=== PATIENT | female | born 1990 | race Caucasian/White ===

== ENCOUNTER 2017-04-24 10:59 | Emergency (ER) | payer OTHER ==
[2017-04-24] MEDS ORDERED: diPHENhydraMINE IV* 50 MG/ML 1 ml VIAL (BENADRYL) IV ONE (11:29)
[2017-04-24] MEDS ORDERED: Metoclopramide IV* 5 MG/ML 2 ML VIAL IV ONE (11:29)
[2017-04-24] MEDS ORDERED: Ketorolac INJ* 30 MG/ML 1 ML VIAL IV ONE (11:29)
[2017-04-24 11:47] LABS: Hematocrit 39 % (35-47); Hemoglobin 13.1 g/dl (12.0-16.0); Mean Corpuscular HGB Conc 34 g/dl (31-36); Mean Corpuscular Hemoglobin 31 pg (27-31); Mean Corpuscular Volume 90 fL (80-97); Mean Platelet Volume 7 um3 (7.4-10.4); Red Blood Count 4.26 10^6/ul (4.0-5.4); Red Cell Distribution Width 13 % (10.5-15); White Blood Count 7.8 10^3/ul (3.5-10.8)
[2017-04-24 12:04] LABS: Albumin 4.1 g/dL (3.2-5.2); BUN/Creatinine Ratio 8.6 (8-20); Calcium 8.6 mg/dL (8.6-10.3); EGFR African American 107.5 (>60); EGFR Non-African American 83.6 (>60); Globulin 3.4 g/dL (2-4); Potassium 3.5 mmol/L (3.5-5.0); Total Bilirubin 0.3 mg/dL (0.2-1.0); Total Protein 7.5 g/dL (6.4-8.9)
[2017-04-24 12:11] LABS: Urine Bilirubin Negative (Negative); Urine Glucose Negative (Negative); Urine Nitrite Negative (Negative)
[2017-04-24 12:36] LABS: Erythrocyte Sed Rate 23 mm/Hr (0-14)
[2017-04-24 13:23] VITALS: BP 137/84
--- NOTE | 2017-04-25 08:33 | ED ---
Jorge Alberto Anaya Angela, scribed for Roque Alvarez MD on 04/24/17 at 1132 . Hypertension - HPI Summary HPI Summary: This pt is a 27 y/o female presenting to [facility] c/o hypertension x3 weeks and headache x2 weeks. Pt reports her headaches are constant and sees light with both eyes. She describes her headaches as a throbbing pain and it radiates to her neck when it's at its worse. Pt notes photophobia and that noise aggravates her headache. She states she has intermittent palpitations (characterized as heart racing) and feels SOB associated. Pt reports she was seen at [facility] and was given Imitrex for her headache (which was day 10 of her headache). Pt denies chest pain, dizziness, numbness, weakness. She is currently on paroxetine for anxiety. Pt has seasonal allergies and currently takes Benadryl and Singulair everyday. LMP: once every 3 months (normal due to taking control). No PMHx of HTN or migraines. - History of Current Complaint Chief Complaint: EDGeneral Stated Complaint: MIGRAINE/2 WEEKS, HIGH BP Time Seen by Provider: 04/24/17 11:18 Hx Obtained From: Patient Onset/Duration: Started Weeks Ago Timing: Lasting Weeks Aggravating Factor(s): Other: - Headache aggravated by light and loud noise. Alleviating Factor(s): Nothing Associated Signs & Symptoms: Headaches, SOB - intermittent with palpitations, Other: - palpitations - Allergies/Home Medications Allergies/Adverse Reactions: Allergies Allergy/AdvReac Type Severity Reaction Status Date / Time Sumatriptan [From Imitrex] Allergy Anxiety Verified 04/24/17 11:17 Home Medications: Home Medications PARoxetine HCL TAB* [Paxil TAB*] 10 mg PO DAILY 04/24/17 [History Confirmed ] Singulair 5 mg TAB* 5 mg PO DAILY 04/24/17 [History Confirmed 04/24/17] PMH/Surg Hx/FS Hx/Imm Hx Endocrine/Hematology History: Denies: Hx Diabetes Cardiovascular History: Denies: Hx Hypertension Psychiatric History: Reports: Hx Anxiety Infectious Disease History: No Infectious Disease History: Denies: Traveled Outside the [place] in Last 30 Days - Family History Known Family History: Positive: Cardiac Disease - maternal great grandfather - Social History Alcohol Use: None Substance Use Type: Reports: None Smoking Status (MU): Never Smoked Tobacco Review of Systems Positive: Other - hypertension. Negative: Fever, Chills Positive: Photophobia Positive: Other - loud noise aggravates headache Positive: Palpitations - intermittent. Negative: Chest Pain Positive: Shortness Of Breath - intermittent with palpitations Gastrointestinal: Negative Genitourinary: Negative Positive: Headache All Other Systems Reviewed And Are Negative: Yes Physical Exam - Summary Physical Exam Summary: VITAL SIGNS: Reviewed. GENERAL: Patient is a well-developed and nourished female who is lying comfortable in the stretcher. Patient is not in any acute respiratory distress. HEAD AND FACE: No signs of trauma. No ecchymosis, hematomas or skull depressions. No sinus tenderness. EYES: PERRLA, EOMI x 2, No injected conjunctiva, no nystagmus. EARS: Hearing grossly intact. Ear canals and tympanic membranes are within normal limits. MOUTH: Oropharynx within normal limits. NECK: Supple, trachea is midline, no adenopathy, no JVD, no carotid bruit, no c- spine tenderness, neck with full ROM. CHEST: Symmetric, no tenderness at palpation LUNGS: Clear to auscultation bilaterally. No wheezing or crackles. CVS: Regular rate and rhythm, S1 and S2 present, no murmurs or gallops appreciated. ABDOMEN: Soft, non-tender. No signs of distention. No rebound no guarding, and no masses palpated. Bowel sounds are normal. EXTREMITIES: FROM in all major joints, no edema, no cyanosis or clubbing. NEURO: Alert and oriented x 3. No acute neurological deficits. Speech is normal and follows commands. SKIN: Dry and warm Triage Information Reviewed: Yes Vital Signs On Initial Exam: Initial Vitals Temp Pulse Resp BP Pulse Ox 99.4 F 92 20 178/105 98 04/24/17 11:11 04/24/17 11:11 04/24/17 11:11 04/24/17 11:11 04/24/17 11:11 Vital Signs Reviewed: Yes Diagnostics - Vital Signs Vital Signs Temp Pulse Resp BP Pulse Ox 04/24/17 11:11 99.4 F 92 20 178/105 98 - Laboratory Lab Results: Lab Results 04/24/17 04/24/17 04/24/17 Range/Units 11:35 11:35 11:42 WBC 7.8 (3.5-10.8) 10^3/ul RBC 4.26 (4.0-5.4) 10^6/ul Hgb 13.1 (12.0-16.0) g/dl Hct 39 (35-47) % MCV 90 (80-97) fL MCH 31 (27-31) pg MCHC 34 (31-36) g/dl RDW 13 (10.5-15) % Plt Count 380 (150-450) 10^3/ul MPV 7 L (7.4-10.4) um3 Neut % (Auto) 64.4 (38-83) % Lymph % (Auto) 25.5 (25-47) % [place] % (Auto) 6.2 (1-9) % Eos % (Auto) 3.2 (0-6) % Baso % (Auto) 0.7 (0-2) % Absolute Neuts (auto) 5.0 (1.5-7.7) 10^3/ul Absolute Lymphs (auto) 2.0 (1.0-4.8) 10^3/ul Absolute Monos (auto) 0.5 (0-0.8) 10^3/ul Absolute Eos (auto) 0.2 (0-0.6) 10^3/ul Absolute Basos (auto) 0.1 (0-0.2) 10^3/ul Absolute Nucleated RBC 0.01 10^3/ul Nucleated RBC % 0.1 ESR 23 H (0-14) mm/Hr Carbon Monoxide Screen (<4.0) % Sodium 135 (133-145) mmol/L Potassium 3.5 (3.5-5.0) mmol/L Chloride 101 (101-111) mmol/L Carbon Dioxide 28 (22-32) mmol/L Anion Gap 6 (2-11) mmol/L BUN 7 (6-24) mg/dL Creatinine 0.81 (0.51-0.95) mg/dL Est GFR ( Amer) 107.5 (>60) Est GFR (Non-Af Amer) 83.6 (>60) BUN/Creatinine Ratio 8.6 (8-20) Glucose 89 (70-100) mg/dL Calcium 8.6 (8.6-10.3) mg/dL Total Bilirubin 0.30 (0.2-1.0) mg/dL AST 16 (13-39) U/L ALT 11 (7-52) U/L Alkaline Phosphatase 57 (34-104) U/L Total Protein 7.5 (6.4-8.9) g/dL Albumin 4.1 (3.2-5.2) g/dL Globulin 3.4 (2-4) g/dL Albumin/Globulin Ratio 1.2 (1-3) Urine Color Straw Urine Appearance Clear Urine pH 7.0 (5-9) Ur Specific [place] 1.006 L (1.010-1.030) Urine Protein Negative (Negative) Urine Ketones Negative (Negative) Urine Blood Negative (Negative) Urine Nitrate Negative (Negative) Urine Bilirubin Negative (Negative) Urine Urobilinogen Negative (Negative) Ur Leukocyte Esterase Negative (Negative) Urine Glucose Negative (Negative) 04/24/17 Range/Units 12:03 WBC (3.5-10.8) 10^3/ul RBC (4.0-5.4) 10^6/ul Hgb (12.0-16.0) g/dl Hct (35-47) % MCV (80-97) fL MCH (27-31) pg MCHC (31-36) g/dl RDW (10.5-15) % Plt Count (150-450) 10^3/ul MPV (7.4-10.4) um3 Neut % (Auto) (38-83) % Lymph % (Auto) (25-47) % [place] % (Auto) (1-9) % Eos % (Auto) (0-6) % Baso % (Auto) (0-2) % Absolute Neuts (auto) (1.5-7.7) 10^3/ul Absolute Lymphs (auto) (1.0-4.8) 10^3/ul Absolute Monos (auto) (0-0.8) 10^3/ul Absolute Eos (auto) (0-0.6) 10^3/ul Absolute Basos (auto) (0-0.2) 10^3/ul Absolute Nucleated RBC 10^3/ul Nucleated RBC % ESR (0-14) mm/Hr Carbon Monoxide Screen < 4 (<4.0) % Sodium (133-145) mmol/L Potassium (3.5-5.0) mmol/L Chloride (101-111) mmol/L Carbon Dioxide (22-32) mmol/L Anion Gap (2-11) mmol/L BUN (6-24) mg/dL Creatinine (0.51-0.95) mg/dL Est GFR ( Amer) (>60) Est GFR (Non-Af Amer) (>60) BUN/Creatinine Ratio (8-20) Glucose (70-100) mg/dL Calcium (8.6-10.3) mg/dL Total Bilirubin (0.2-1.0) mg/dL AST (13-39) U/L ALT (7-52) U/L Alkaline Phosphatase (34-104) U/L Total Protein (6.4-8.9) g/dL Albumin (3.2-5.2) g/dL Globulin (2-4) g/dL Albumin/Globulin Ratio (1-3) Urine Color Urine Appearance Urine pH (5-9) Ur Specific [place] (1.010-1.030) Urine Protein (Negative) Urine Ketones (Negative) Urine Blood (Negative) Urine Nitrate (Negative) Urine Bilirubin (Negative) Urine Urobilinogen (Negative) Ur Leukocyte Esterase (Negative) Urine Glucose (Negative) Result Diagrams: 04/24/17 11:35 04/24/17 11:35 Lab Statement: Any lab studies that have been ordered have been reviewed, and results considered in the medical decision making process. - EKG 1156 Cardiac Rate: Tachycardia - 102 bpm EKG Rhythm: Sinus Rhythm EKG Interpretation: No ST elevation Re-Evaluation - Re-Evaluation Second Eval Re-Evaluation Time: 13:00 Comment: Blood pressure is 150/89. Pt is feeling much better. Hypertension Course/Dx - Course Assessment/Plan: This pt is a 27 y/o female presenting to [facility] c/o hypertension x3 weeks and headache x2 weeks. Pt reports her headaches are constant and sees light with both eyes. She describes her headaches as a throbbing pain and it radiates to her neck when it's at its worse. Pt notes photophobia and that noise aggravates her headache. She states she has intermittent palpitations (characterized as heart racing) and feels SOB associated. Pt reports she was seen at [facility] and was given Imitrex for her headache (which was day 10 of her headache). Pt denies chest pain, dizziness, numbness, weakness. She is currently on paroxetine for anxiety. Pt has seasonal allergies and currently takes Benadryl and Singulair everyday. LMP : once every 3 months (normal due to taking control). No PMHx of HTN or migraines. Test result without any significant abnormalities. UA is negative for UTI. In the ED course, the pt was given IV fluids, Benadryl, Toradol, and Reglan for a migraine headache. After these medications, her blood pressure significantly improved (150/89). Therefore, Im not 100% sure if the pt has a migraine headache had that makes her hypertensive, or chronic hypertension that gives her headache. At this point, her headache has resolved. Therefore, I asked the pt to follow up with her PCP for further assessment of her headache and HTN. The pt understands and agrees. Pt is hemodynamically stable, alert and oriented x3. - Diagnoses Differential Diagnosis/HQI PQRI: Hypertension, Hypertensive Crisis, Hypertensive Urgency, Migraine Headache Provider Diagnoses: Increased blood pressure, Headache Discharge - Discharge Plan Condition: Stable Disposition: HOME Patient Education Materials: Acute Headache (ED), Hypertension (ED) Forms: *Work Release Referrals: [facility] PHYSICIAN REFERRAL [Outside] Additional Instructions: Please follow up with your primary care provider in 2-3 days. The documentation as recorded by the Jorge Alberto todd Angela accurately reflects the service I personally performed and the decisions made by me, Roque Alvarez MD.
== END 2017-04-24 13:25 | disposition home or self-care (01) ==
LOC: ED 10:59
DX: R51 Headache (principal); I10 Essential (primary) hypertension; R00.2 Palpitations; R06.02 Shortness of breath; F41.9 Anxiety disorder, unspecified; Z88.8 Allergy status to other drugs, medicaments and biological substances
CPT/HCPCS: 36415; 80053; 81003; 82375; 85025; 85652; 93005; 96374; 96375; 99283; J1200; J1885; J2765

== ENCOUNTER 2017-04-28 17:08 | Emergency (ER) | payer OTHER ==
[2017-04-28] MEDS ORDERED: Ondansetron INJ* 2 MG/ML VIAL IV ONE (17:50)
[2017-04-28] MEDS ORDERED: NS 0.9% 1000 ML* 1,000 ML IV ONE ×2 (17:50→20:08)
[2017-04-28] MEDS ORDERED: LORazepam INJ* 2 MG/ML 1 ML VIAL IV PUSH ONE (17:50)
[2017-04-28] MEDS ORDERED: HYDROmorphone INJ* 1 MG/ML CARPUJECT SYRINGE IV SLOW PU ONE (17:50)
[2017-04-28] MEDS ORDERED: HYDROmorphone INJ* 2 MG/ML CARPUJECT SYRINGE IV SLOW PU ONE (17:55)
[2017-04-28 18:13] LABS: Hematocrit 38 % (35-47); Hemoglobin 12.8 g/dl (12.0-16.0); Mean Corpuscular HGB Conc 34 g/dl (31-36); Mean Corpuscular Hemoglobin 31 pg (27-31); Mean Corpuscular Volume 92 fL (80-97); Mean Platelet Volume 7 um3 (7.4-10.4); Red Cell Distribution Width 14 % (10.5-15); White Blood Count 7.4 10^3/ul (3.5-10.8)
[2017-04-28] MEDS ORDERED: Lidocaine 1% INJ* 10 MG/ML 30 ML SDV ONE (18:24)
[2017-04-28] MEDS ORDERED: Lidocaine 1% MDV 20 ML INJ ONE (18:26)
[2017-04-28 18:28] LABS: Albumin 4.1 g/dL (3.2-5.2); BUN/Creatinine Ratio 11.1 (8-20); EGFR African American 107.5 (>60); EGFR Non-African American 83.6 (>60); Globulin 3.3 g/dL (2-4); Potassium 3.3 mmol/L (3.5-5.0); Total Bilirubin 0.3 mg/dL (0.2-1.0); Total Protein 7.4 g/dL (6.4-8.9)
--- NOTE | 2017-04-28 18:42 | RAD ---
Indication: Severe headache. Hypertension. Fever. Comparison: No relevant prior exams available on the [facility] PACS for comparison. Technique: Noncontrast CT vertex of skull through foramen magnum. Report: The sulci, ventricles, and basal cisterns are normal for age. Manning matter white matter differentiation is preserved without evidence for edema. No intra or extra axial hemorrhage, mass, or fluid collection detected. Unremarkable visualized orbital contents. Unremarkable calvarium and skull base. Unremarkable scalp. The visualized paranasal sinuses and mastoid air spaces are clear. IMPRESSION: Negative unenhanced head CT.
[2017-04-28 18:50] LABS: Urine Bacteria Absent (Absent); Urine Bilirubin Negative (Negative); Urine Glucose Negative (Negative); Urine Nitrite Negative (Negative)
[2017-04-28 18:56] LABS: Erythrocyte Sed Rate 20 mm/Hr (0-14)
[2017-04-28] MEDS ORDERED: Iohexol 350* (CONTRAST) 500 ML MDV IV ONE (19:50)
--- NOTE | 2017-04-28 21:09 | RAD ---
INDICATION: Headache, hypertension, fever. COMPARISON: Noncontrast head CT of the same date. TECHNIQUE: Multidetector CT images were obtained from the aortic arch to the vertex of the head with 80 mL Omnipaque 350 IV contrast. Arterial phase of enhancement. Multiplanar reformation including maximum intensity projection. 3-D arterial volume rendering. Stenosis estimations based on denominator of distal arterial diameter. NECK ANGIOGRAM REPORT: Variant common origin of the RIGHT brachiocephalic and LEFT common carotid arteries from the aortic arch. Negative for ostial stenosis. Unremarkable bilateral common and internal carotid arteries. Negative for occlusion, stenosis, dissection, or aneurysm. LEFT dominant vertebral artery with both vertebral arteries patent and contributing to the basilar artery. Patent bilateral internal jugular veins. NECK ANGIOGRAM IMPRESSION: Normal CT angiogram of the carotid and vertebral arteries. HEAD ANGIOGRAM REPORT: Patent unremarkable intracranial internal carotid arteries as well as the M1 and M2 segments of the middle cerebral arteries and A1 and A2 anterior cerebral artery segments. Patent anterior communicating artery. Unremarkable basilar artery and cerebellar artery origins. Patent posterior cerebral arteries are supplied primarily by the posterior circulation with normal variant hypoplastic posterior communicating arteries. No intracranial aneurysm or vascular malformation evident. No arterial phase enhancing lesions evident. HEAD ANGIOGRAM IMPRESSION: Normal CT angiogram of the central intracranial arterial vasculature. CPT II: CPT II Codes: 3100F
--- NOTE | 2017-04-28 21:30 | ED ---
Nino Anaya Abhishek, scribed for Katia Moncada MD on 04/28/17 at 1744 . Headache - HPI Summary HPI Summary: This patient is a 27 year old F presenting to [facility] accompanied by female with a chief complaint of VIGIL since 3 weeks ago at 0800. The CC is described as intermittent The patient rates the pain 7/10 in severity. Symptoms aggravated by nothing. Symptoms alleviated by nothing. Patient reports intermittent visual changes, low grade fevers, weakness, and high blood pressure, frequent urination. Patient denies weakness bilaterally, and naval congestion. PMHx includes HTN, Syncope from migraines. - History Of Current Complaint Chief Complaint: EDHeadache Stated Complaint: HEADACHE 3 WKS/THROBBING/EAR PRESSURE/FEVER Time Seen by Provider: 04/28/17 17:27 Hx Obtained From: Patient Onset/Duration: Started weeks ago - 3 weeks ago (0800), Still Present Initially Headache Was: "Worst Headache Ever" Currently Pain Is: Current Pain Scale(0-10)= - 7 Timing: Intermittent, Lasting: Character: Migraine Aggravating Factor: Nothing Allevating Factors: Nothing Associated Signs And Symptoms: Fever - low grade, Visual Changes, Other (Noted In Comments) - frequent urination - Allergies/Home Medications Allergies/Adverse Reactions: Allergies Allergy/AdvReac Type Severity Reaction Status Date / Time Sumatriptan [From Imitrex] Allergy Anxiety Verified 04/28/17 17:24 PMH/Surg Hx/FS Hx/Imm Hx Endocrine/Hematology History: Denies: Hx Diabetes Cardiovascular History: Reports: Hx Hypertension Psychiatric History: Reports: Hx Anxiety Infectious Disease History: No Infectious Disease History: Denies: Traveled Outside the [place] in Last 30 Days - Family History Known Family History: Positive: Cardiac Disease - maternal great grandfather, Other - Migraines, chronic back pain Negative: Diabetes - Social History Occupation: Employed Full-time Lives: With Family - 4 children Alcohol Use: None Substance Use Type: Reports: None Smoking Status (MU): Never Smoked Tobacco Review of Systems Positive: Fever - low grade Eyes: Negative ENT: Negative Positive: Other - high blood pressure Respiratory: Negative Gastrointestinal: Negative Positive: frequency - urination Musculoskeletal: Negative Skin: Negative Neurological: Other - visual changes (intermittent) Positive: Headache - intermittent and throbbing. Negative: Weakness Psychological: Normal All Other Systems Reviewed And Are Negative: Yes Physical Exam - Summary Physical Exam Summary: General: Well appearing, no pain distress Skin: Warm, Skin Color Reflects Adequate Perfusion, Dry Eyes: EOMI, KOKI ENT: Pharynx normal, TMs normal Neck: Supple, nontender Respiratory: CTA, breath sounds present, no rhonchi, no wheezes, no rales Cardiovascular: RRR, no murmur, no rub, no gallop Abdomen: Soft, nontender, Non-distended, no guarding, no rebound Bowel: Present Musculoskeletal: TROY, tenderness over her forehead not over her temporal artery , Neuro: Sensory/motor intact, A&Ox3, CN intact 2-12, No meningitis, Neuro exam is normal Psych: Affect/mood appropriate Triage Information Reviewed: Yes Vital Signs On Initial Exam: Initial Vitals Temp Pulse Resp BP Pulse Ox 98.6 F 88 16 176/106 100 04/28/17 17:18 04/28/17 17:18 04/28/17 17:18 04/28/17 17:18 04/28/17 17:18 Vital Signs Reviewed: Yes Diagnostics - Vital Signs Vital Signs Temp Pulse Resp BP Pulse Ox 04/28/17 17:18 98.6 F 88 16 176/106 100 - Laboratory Lab Results: Lab Results 04/28/17 04/28/17 04/28/17 Range/Units 18:00 18:00 18:36 WBC 7.4 (3.5-10.8) 10^3/ul RBC 4.10 (4.0-5.4) 10^6/ul Hgb 12.8 (12.0-16.0) g/dl Hct 38 (35-47) % MCV 92 (80-97) fL MCH 31 (27-31) pg MCHC 34 (31-36) g/dl RDW 14 (10.5-15) % Plt Count 381 (150-450) 10^3/ul MPV 7 L (7.4-10.4) um3 Neut % (Auto) 56.7 (38-83) % Lymph % (Auto) 33.0 (25-47) % [place] % (Auto) 6.0 (1-9) % Eos % (Auto) 3.6 (0-6) % Baso % (Auto) 0.7 (0-2) % Absolute Neuts (auto) 4.2 (1.5-7.7) 10^3/ul Absolute Lymphs (auto) 2.5 (1.0-4.8) 10^3/ul Absolute Monos (auto) 0.4 (0-0.8) 10^3/ul Absolute Eos (auto) 0.3 (0-0.6) 10^3/ul Absolute Basos (auto) 0.1 (0-0.2) 10^3/ul Absolute Nucleated RBC 0 10^3/ul Nucleated RBC % 0 ESR 20 H (0-14) mm/Hr Sodium 136 (133-145) mmol/L Potassium 3.3 L (3.5-5.0) mmol/L Chloride 103 (101-111) mmol/L Carbon Dioxide 28 (22-32) mmol/L Anion Gap 5 (2-11) mmol/L BUN 9 (6-24) mg/dL Creatinine 0.81 (0.51-0.95) mg/dL Est GFR ( Amer) 107.5 (>60) Est GFR (Non-Af Amer) 83.6 (>60) BUN/Creatinine Ratio 11.1 (8-20) Glucose 157 H (70-100) mg/dL Calcium 9.0 (8.6-10.3) mg/dL Total Bilirubin 0.30 (0.2-1.0) mg/dL AST 16 (13-39) U/L ALT 13 (7-52) U/L Alkaline Phosphatase 53 (34-104) U/L Total Protein 7.4 (6.4-8.9) g/dL Albumin 4.1 (3.2-5.2) g/dL Globulin 3.3 (2-4) g/dL Albumin/Globulin Ratio 1.2 (1-3) Urine Color Yellow Urine Appearance Clear Urine pH 6.0 (5-9) Ur Specific [place] 1.012 (1.010-1.030) Urine Protein Negative (Negative) Urine Ketones Negative (Negative) Urine Blood 1+ H (Negative) Urine Nitrate Negative (Negative) Urine Bilirubin Negative (Negative) Urine Urobilinogen Negative (Negative) Ur Leukocyte Esterase 2+ H (Negative) Urine WBC (Auto) Trace(0-5/hpf) (Absent) Urine RBC (Auto) 1+(3-5/hpf) H (Absent) Ur Squamous Epith Cells Present H (Absent) Urine Bacteria Absent (Absent) Urine Glucose Negative (Negative) Result Diagrams: 04/28/17 18:00 04/28/17 18:00 Lab Statement: Any lab studies that have been ordered have been reviewed, and results considered in the medical decision making process. - CT Brain CT CT Interpretation Completed By: Radiologist - Brain CT reveals Negative unenhanced head CT. ED physician has reviewed this radiology report and agrees. Head CTA CT Interpretation Completed By: Radiologist - Head CTA reveals Normal CT angiogram of the central intracranial arterial vasculature. ED physician has reviewed this radiology report and agrees. - EKG 1808 EKG Interpretation: Normal EKG Headache Course/Dx - Course Course Of Treatment: 27 yo female with headache x 2weeks that is intermittent. There is a strong family history of migraine. She has been seen 2x in the past for the headache. today labs were essentially neg. she does not have temporal artery tenderness but in tender over her left mandaen (again not over the artery) , and her esr is 20 (not 50 which would be significant for mandaen arteritis). A ct and cta of her brain and neck were neg. An LP was attempted but pt became near syncopal from the procedure and so it was eventually aborted. Of course, meningitis is in the differential but she is afebrile and it is low on the differential and if she had a sentinal bleed we do not see any anuerysms to support that. She is very well appearing and appears only mildly uncomfortable. she is already seeing her pmd about htn and this vigil, of note her bp normalized with pain meds and one must wonder which is causing which in terms of the vigil and the htn, she has of note been started on an antihypertensive by her pmd. - Diagnoses Provider Diagnoses: Headache Discharge - Discharge Plan Condition: Stable Disposition: HOME The documentation as recorded by the Nino todd Abhishek accurately reflects the service I personally performed and the decisions made by me, Katia Moncada MD.
[2017-04-28 21:50] VITALS: BP 141/98
[2017-05-01 17:00] LABS: B garinii/B afzelii PCR Negative (Negative); B mayonii PCR Negative (Negative)
== END 2017-04-28 21:54 | disposition home or self-care (01) ==
LOC: ED 17:08
DX: R51 Headache (principal); R50.9 Fever, unspecified
CPT/HCPCS: 36415; 70450; 70496; 70498; 80053; 81003; 81015; 85025; 85652; 86618; 87086; 87476; 87798; 93005; 99282; J1170; J2001; J2060; J2405; Q9967

== ENCOUNTER 2017-07-12 19:14 | Emergency (ER) | payer OTHER ==
[2017-07-12 20:08] VITALS: BP 103/58
--- NOTE | 2017-07-12 20:15 | ED ---
Nino Anaya Abhishek, scribed for Todd Flowers MD on 07/12/17 at 2009 . Complex/Multi-Sys Presentation - HPI Summary HPI Summary: This patient is a 27 year old F [facility] accompanied by male with a c /o of hypotension since today. The patient was reportedly receiving an evaluation for a hypertension a few days ago at her PCP. The pt was then prescribed Lopressor (50 mg) and was told to take the medication once a day. She has been taking the medication for a few days and reports she was "unable to do anything" today, fatigue, and VIGIL. Pt checked her blood pressure earlier today and it was reported to be 92/55. - History Of Current Complaint Chief Complaint: EDGeneral Time Seen by Provider: 07/12/17 19:37 Hx Obtained From: Patient Onset/Duration: Gradual Onset, Lasting Hours - Since today morning, Resolved - VIGIL Timing: Constant Severity Currently: None Aggravating Factor(s): nothing Alleviating Factor(s): nothing Associated Signs And Symptoms: Positive: Other - Fatigue and VIGIL - Allergies/Home Medications Allergies/Adverse Reactions: Allergies Allergy/AdvReac Type Severity Reaction Status Date / Time Sumatriptan [From Imitrex] Allergy Anxiety Verified 04/28/17 17:24 PMH/Surg Hx/FS Hx/Imm Hx Endocrine/Hematology History: Denies: Hx Diabetes Cardiovascular History: Reports: Hx Hypertension Psychiatric History: Reports: Hx Anxiety Infectious Disease History: No Infectious Disease History: Denies: Traveled Outside the [place] in Last 30 Days - Family History Known Family History: Positive: Cardiac Disease - maternal great grandfather, Other - Migraines, chronic back pain Negative: Diabetes - Social History Lives: With Family Alcohol Use: Occasionally Substance Use Type: Reports: None Smoking Status (MU): Never Smoked Tobacco Review of Systems Positive: Fatigue Eyes: Negative ENT: Negative Cardiovascular: Other - hypotensive Respiratory: Negative Gastrointestinal: Negative Genitourinary: Negative Musculoskeletal: Negative Skin: Negative Positive: Headache - currently resolved Psychological: Normal All Other Systems Reviewed And Are Negative: Yes Physical Exam - Summary Physical Exam Summary: VITAL SIGNS: Reviewed. GENERAL: ~Patient is a well-developed and nourished (FEMALE) who is lying comfortable in the stretcher. Patient is not in any acute respiratory distress. HEAD AND FACE: No signs of trauma. No ecchymosis, hematomas or skull depressions. No sinus tenderness. EYES: PERRLA, EOMI x 2, No injected conjunctiva, no nystagmus. EARS: Hearing grossly intact. Ear canals and tympanic membranes are within normal limits. MOUTH: Oropharynx within normal limits. NECK: Supple, trachea is midline, no adenopathy, no JVD, no carotid bruit, no c- spine tenderness, neck with full ROM. CHEST: Symmetric, no tenderness at palpation LUNGS: Clear to auscultation bilaterally. No wheezing or crackles. CVS: Regular rate and rhythm, S1 and S2 present, no murmurs or gallops appreciated. ABDOMEN: Soft, non-tender. No signs of distention. No rebound no guarding, and no masses palpated. Bowel sounds are normal. EXTREMITIES: FROM in all major joints, no edema, no cyanosis or clubbing. NEURO: Alert and oriented x 3. No acute neurological deficits. Speech is normal and follows commands. SKIN: Dry and warm Triage Information Reviewed: Yes Vital Signs On Initial Exam: Initial Vitals Temp Pulse Resp BP Pulse Ox 98 F 80 18 135/88 100 07/12/17 19:17 07/12/17 19:17 07/12/17 19:17 07/12/17 19:17 07/12/17 19:17 Vital Signs Reviewed: Yes - Garber Coma Scale Coma Scale Total: 15 Diagnostics - Vital Signs Vital Signs Temp Pulse Resp BP Pulse Ox 07/12/17 19:17 98 F 80 18 135/88 100 - Laboratory Lab Statement: Any lab studies that have been ordered have been reviewed, and results considered in the medical decision making process. Complex Multi-Symp Course/Dx Course Of Treatment: We spent time discussing the patient's medication Lopressor (50 mg) and recommended talking to her PCP about potentially lowering the medication dosage or discussing changing her medication. The patient will be discharged home. The Dx will be headache and fatigue. - Diagnoses Provider Diagnoses: Headache, Fatigue Discharge - Discharge Plan Condition: Stable Disposition: HOME Patient Education Materials: Acute Headache (ED), Fatigue (ED) Referrals: Guillermo GREENBERG,Jos Mustafa [Primary Care Provider] - (Follow up with PCP within 2 to 3 days.) Additional Instructions: RETURN TO THE EMERGENCY DEPARTMENT FOR CHANGING OR WORSENING SYMPTOMS. The documentation as recorded by the scribe, Nino,Simon accurately reflects the service I personally performed and the decisions made by me, Todd Flowers MD.
== END 2017-07-12 20:08 | disposition home or self-care (01) ==
LOC: ED 19:14
DX: R51 Headache (principal); R53.83 Other fatigue; I10 Essential (primary) hypertension; Z88.8 Allergy status to other drugs, medicaments and biological substances
CPT/HCPCS: 99282

== ENCOUNTER 2018-01-01 08:47 | Day surgery (SDC) | payer OTHER ==
[~2018-01-01 08:47] MED LIST: Buffered Lidocaine 0.9% SYRIN* 5 ML/SYR SYRINGE INTRADERM ONE; Dexamethasone TAB* 4 MG PO ONE; DiMENhydriNATE IV* 50 MG/ML VIAL IV PUSH PRN; Famotidine IV* 10 MG/ML 2 ML (20 mg) IV ONE; Morphine INJ* 2 MG/ML 1 ML CARPUJECT IV PRN; Naloxone* 0.4 MG/ML 1 ML VIAL IV PRN; Ondansetron INJ* 2 MG/ML VIAL ONE; PROCHLORPERAZINE INJ 5 MG/ML 2 ML VIAL IV PRN; Scopolamine 1.5 mg* PATCH TRANSDERM PRN; oxyCODONE/Acetamin 5/325 MG* TAB PO PRN
[2018-01-01] MEDS ORDERED: Buffered Lidocaine 0.9% SYRIN* 5 ML/SYR SYRINGE ONE (08:53)
[2018-01-01] MEDS ORDERED: Famotidine IV* 10 MG/ML 2 ML (20 mg) ONE (08:53)
[2018-01-01] MEDS ORDERED: Ondansetron ODT TAB* 4 MG ONE (08:53)
[2018-01-01] MEDS ORDERED: Dexamethasone TAB* 4 MG ONE (08:53)
[2018-01-01] MEDS ORDERED: fentaNYL* 50 MCG/ML 2 ML VIAL (100 MCG VIAL) ONE ×2 (10:28→14:57)
[2018-01-01] MEDS ORDERED: Midazolam* 1 MG/ML 5 ML VIAL (5 MG) ONE (10:28)
[2018-01-01] MEDS ORDERED: Lidocain 1% EPI 1:100,000 * 30 ML MDV ONE (11:06)
[2018-01-01] MEDS ORDERED: Morphine INJ* 10 MG/ML 1 ML CARPUJECT ONE (12:16)
[2018-01-01] MEDS ORDERED: Lidocaine 2% PF * 5 ML VIAL ONE (13:02)
[2018-01-01] MEDS ORDERED: Propofol* 10 MG/ML 20 ML BTL IV PUSH ONE (13:02)
[2018-01-01] MEDS ORDERED: PROCHLORPERAZINE INJ 5 MG/ML 2 ML VIAL ONE ×2 (13:02→14:17)
[2018-01-01] MEDS ORDERED: Bacitracin OINTMENT* 0.5% 0.5 oz TUBE ONE (13:11)
[2018-01-01] MEDS ORDERED: oxyCODONE/Acetamin 5/325 MG* TAB ONE (13:52)
[2018-01-01] MEDS ORDERED: Scopolamine 1.5 mg* PATCH ONE (14:06)
[2018-01-01] MEDS: fentaNYL* 50 MCG/ML 2 ML VIAL (100 MCG VIAL) IV PRN ×2 (14:58→15:02)
[2018-01-01 15:52] VITALS: BP 119/71
--- NOTE | 2018-01-02 05:11 | OP ---
DATE OF OPERATION: 01/01/18 - [facility] DATE OF : 86 ATTENDING SURGEON: Petey Saavedra MD ACTIVITY SPECIALIST: Dr. Subhash Miller. ANESTHESIA: General. 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 OPERATIVE PROCEDURE: Right superficial parotidectomy with facial nerve monitoring. ESTIMATED BLOOD LOSS: Less than 30 cc. SPECIMEN: Right parotid to pathology. COMPLICATIONS: None. DESCRIPTION OF PROCEDURE: This is a 27-year-old woman who has had a several- year history of a firm nodule just inferior to the right ear lobe. Fine-needle aspiration was consistent with pleomorphic adenoma. She presented today for definitive excision. The patient was brought to the operating room, general anesthesia was induced, and an oral endotracheal tube was placed. A [facility]'s facial nerve monitor was then placed and found to be in good working order. The right hemiface was prepped with Betadine. The intended incision site was infiltrated with 1% lidocaine with 1:100,000 epinephrine following performance of a time-out. A 15- blade was then used to make an incision just anterior to the right external auditory canal. The incision was dropped inferiorly around the right lobule into the upper neck and then brought forward. A skin flap was then raised anteriorly with facelift scissors. Skin flap was elevated posteriorly as well. At this point, the fascia was dissected down to the level of the sternocleidomastoid muscle posteriorly and inferiorly. The greater auricular nerve was identified and preserved. More superiorly, a plane was developed between the cartilage of the anterior portion of the external auditory canal and the parotid fascia. Dissection was then undertaken across the broad front down into the region of the tympanomastoid suture line where the facial nerve was identified visually and confirmed with a stimulator. A small vessel just superficial to the facial nerve was identified and ligated with small hemoclips. The facial nerve was then used as a landmark to guide dissection. The nerve was traced distally to the region of the pes. The upper division was dissected partially enabling superior margin on the palpable tumor to be created. Inferiorly, the lower division branches were traced out more distally underneath the parotid mass so as to be able to obtain a margin of healthy parotid tissue. The dissection was facilitated with the use of bipolar cautery and a #12 blade. Once the specimen was completely mobilized and was placing formalin, the facial nerve was inspected. It was visually completely intact. The main trunk as well as the upper and lower divisions were stimulated and found to be associated with a good brisk response on the monitor and movement of the face clinically. The wound was irrigated. A very small vessel was clipped with a small titanium clip to prevent bleeding. The wound was then closed in layers, the deep layer of 4-0 Vicryl was used to reapproximate dermis. The superior part of the incision was closed with 5-0 fast absorbing gut. A 0.25 inch Makenna was inserted just inferior to the lobule and secured with a 4-0 Prolene and then the inferior portion of the incision was closed with a combination of interrupted and running nylon stitches. The patient was then returned to the care of the anesthesiologist, extubated and returned to the PACU in stable condition where she was noted to have good symmetric facial nerve function. [id number]/CPS #: [id number] ALEJANDRO
[2018-01-04] MEDS ORDERED: Scopolamine PATCH Remove* 1 NOTE MISC PATCH OFF ONE (05:44)
== END 2018-01-01 15:45 | disposition home or self-care (01) ==
LOC: OR 08:47
PROVIDERS: ATTEND Otolaryngology
DX: D11.0 Benign neoplasm of parotid gland (principal); F41.8 Other specified anxiety disorders; I10 Essential (primary) hypertension
CPT/HCPCS: 81025; 88307; A9270-GY; C1776; J0780; J2250; J2270; J2405; J2704; J3010; J8540

== ENCOUNTER 2018-04-18 11:34 | Emergency (ER) | payer OTHER ==
--- NOTE | 2018-04-18 12:49 | RAD ---
Indication: Right forearm injury. 2 views of the right forearm are reviewed. There is no fracture or dislocation. No other bone or joint abnormality is noted. IMPRESSION: No fracture of the right forearm is noted.
--- NOTE | 2018-04-18 12:55 | RAD ---
Indication: Right elbow injury. 4 views of the right elbow demonstrates no fracture. No joint effusion is noted. No other bone or joint abnormality is identified. IMPRESSION: No fracture of the right elbow is noted.
[2018-04-18 13:37] VITALS: BP 115/80
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
== END 2018-04-18 13:36 | disposition home or self-care (01) ==
LOC: ED 11:34
DX: S53.401A Unspecified sprain of right elbow, initial encounter (principal); X50.0XXA Overexertion from strenuous movement or load, initial encounter; Y99.0 Civilian activity done for income or pay; Y92.89 Other specified places as the place of occurrence of the external cause; Y92.199 Unspecified place in other specified residential institution as the place of occurrence of the external cause
CPT/HCPCS: 99282